=== PATIENT | female | born 1960 | race American Indian/Alaskan Native ===

== ENCOUNTER 2016-10-23 11:06 | Emergency (ER) | payer OTHER ==
--- NOTE | 2016-10-23 20:25 | Emergency Department Report ---
ED General Adult HPI - General Chief complaint: Extremity Injury, Lower Stated complaint: PAINFUL RT LEG SWELLING Time Seen by Provider: 10/23/16 20:08 Source: patient, RN notes reviewed Mode of arrival: Ambulatory Limitations: No Limitations - History of Present Illness Initial comments: This is a 56-year-old female. She is previously unknown to me. Her primary care doctor is Dr. Winters. She denies chronic medical conditions. The patient presents to the ER with complaint of right posterior leg pain. The pain has been present since Tuesday. It is constant. It is achy. It increases with palpation and range of motion. It decreases with rest. It does not radiate anywhere. There is no headache, neck pain, chest pain, abdominal pain or shortness of breath. Patient does take estrogen supplementation. On further review of systems, the patient does report that she's had intermittent crampy pain in the right lower extremity previously, but never paid enough attention to it. -: Gradual, days(s) Location: right, lower extremity Radiation: non-radiation Quality: aching Consistency: intermittent Improves with: rest Worsens with: movement Associated Symptoms: denies other symptoms - Related Data Previous Rx's Medication Instructions Recorded Last Taken Type Ibuprofen [Motrin] 600 mg PO Q8H PRN #30 tablet 10/23/16 Unknown Rx Allergies Allergy/AdvReac Type Severity Reaction Status Date / Time No Known Allergies Allergy Verified 10/23/16 11:17 ED Review of Systems ROS: Stated complaint: PAINFUL RT LEG SWELLING Other details as noted in HPI ED Past Medical Hx - Past Medical History Previous Medical History?: No - Surgical History Additional Surgical History: partial hysterectomy - Social History Smoking Status: Current Every Day Smoker Substance Use Type: Alcohol - Medications Home Medications: Home Medications Medication Instructions Recorded Confirmed Last Taken Type Ibuprofen [Motrin] 600 mg PO Q8H PRN #30 tablet 10/23/16 Unknown Rx ED Physical Exam - General Limitations: No Limitations General appearance: alert, in no apparent distress - Head Head exam: Present: atraumatic, normocephalic - Eye Eye exam: Present: normal appearance, EOMI. Absent: nystagmus - ENT ENT exam: Present: normal exam, normal orophraynx, mucous membranes moist, normal external ear exam - Neck Neck exam: Present: normal inspection, full ROM. Absent: tenderness, meningismus - Respiratory Respiratory exam: Present: normal lung sounds bilaterally. Absent: respiratory distress, wheezes, rales, rhonchi, stridor, chest wall tenderness, accessory muscle use, decreased breath sounds, prolonged expiratory - Cardiovascular Cardiovascular Exam: Present: regular rate, normal rhythm, normal heart sounds. Absent: systolic murmur, diastolic murmur, rubs, gallop - GI/Abdominal GI/Abdominal exam: Present: soft, normal bowel sounds. Absent: distended, tenderness, guarding, rebound, rigid, pulsatile mass - Extremities Exam Extremities exam: Present: normal inspection, full ROM, normal capillary refill , calf tenderness (there is right posterior calf tenderness. There is no palpable cord, there is negative Homans sign.), other (the compartments are soft. There is no pain with passive range of motion of the great toe on either of the lower extremities, 2+ pulses are noted in the bilateral upper and lower extremities). Absent: tenderness, pedal edema, joint swelling - Back Exam Back exam: Present: normal inspection, full ROM. Absent: tenderness, CVA tenderness (R), CVA tenderness (L), muscle spasm, paraspinal tenderness, vertebral tenderness - Neurological Exam Neurological exam: Present: alert, oriented X3, normal gait, other (Extraocular movements intact. Tongue midline. No facial droop. Facial sensation intact to light touch in the V1, V2, V3 distribution bilaterally. 5 and 5 strength in 4 extremities.. Sensation is intact to light touch in 4 extremities.). Absent : motor sensory deficit - Psychiatric Psychiatric exam: Present: normal affect, normal mood - Skin Skin exam: Present: warm, dry, intact, normal color. Absent: rash ED Course Vital Signs 10/23/16 10/23/16 10/23/16 11:17 20:38 20:39 Temperature 98.1 F 98.1 F Pulse Rate 75 72 Respiratory 18 18 Rate Blood Pressure 175/111 Blood Pressure 181/107 [Right] O2 Sat by Pulse 100 100 99 Oximetry ED Medical Decision Making - Lab Data Vital Signs 10/23/16 11:17 Temperature 98.1 F Pulse Rate 75 Respiratory 18 Rate Blood Pressure 175/111 O2 Sat by Pulse 100 Oximetry - Radiology Data Radiology results: report reviewed, image reviewed [facility] 1960 [id number] 10/23/16 13:28 - Radiology Dept. 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 Her lower extremity DVT study demonstrates no popliteal or distal DVT, however there is an incidental DVT noted CHRONIC VERY SMALL NON-OCCLUSIVE DVT RT DFV The patient is afebrile, with reassuring vital signs, without chest pain, shortness of breath, or DVT or pulmonary embolus risk factors. Given that the aforementioned lesion is very small, and is chronic in appearance, does not anatomically correlates to the location of the patient's pain, I don't think that this finding is immediately clinically relevant. The patient will be discharged with pain medication, and she should follow up with outpatient primary care or hematology for further evaluation and workup. She is counseled to follow up with her primary care for her hypertension. As for the [employer] clinical policy on a symptomatically hypertension: Critical Questions 1. Are ED blood pressure readings accurate and reliable for screening asymptomatic patients for hypertension? Level A recommendations. None specified. Level B recommendations. If blood pressure measurements are persistently elevated with a systolic blood pressure greater than 140 mm Hg or diastolic blood pressure greater than 90 mm Hg, the patient should be referred for follow- up of possible hypertension and blood pressure management. Level C recommendations. Patients with a single elevated blood pressure reading may require further screening for hypertension in the outpatient setting. 2. Do asymptomatic patients with elevated blood pressures benefit from rapid lowering of their blood pressure? Level A recommendations. None specified. Level B recommendations. (1) Initiating treatment for asymptomatic hypertension in the ED is not necessary when patients have follow-up; (2) Rapidly lowering blood pressure in asymptomatic patients in the ED is unnecessary and may be harmful in some patients; (3) When ED treatment for asymptomatic hypertension is initiated, blood pressure management should attempt to gradually lower blood pressure and should not be expected to be normalized during the initial ED visit. Level C recommendations. None specified. Critical care attestation.: If time is entered above; I have spent that time in minutes in the direct care of this critically ill patient, excluding procedure time. ED Disposition Clinical Impression: Elevated blood pressure reading, Right leg pain Disposition: TO HOME OR SELFCARE Is pt being admited?: No Does the pt Need Aspirin: No Condition: Stable Instructions: Deep Venous Thrombosis (ED), Hypertension (ED) Additional Instructions: Rest and avoid heavy lifting. Avoid strenuous physical activity. Take the pain medication as directed. Follow up with your primary care doctor or transit specialist within the next 7-10 days. Return to the ER right away with new pain, worsened pain, migration of pain, fevers, chills, chest pain, shortness of breath, confusion, intractable nausea or vomiting, inability to tolerate liquid feeds. Please note that blood pressure was elevated. This should be followed up by primary care doctor within a month. Long-term complications of hypertension and elevated blood pressure includes stroke, heart attack, disability, , paralysis, loss of quality of life. Prescriptions: Ibuprofen [Motrin] 600 mg PO Q8H PRN #30 tablet PRN Reason: Pain Referrals: PRIMARY CAREMD [Primary Care Provider] - 3-5 Days SUKI MCKEON MD [Staff Physician] - 3-5 Days SUZANNE GARCIA MD [Staff Physician] - 3-5 Days Forms: Work/School Release Form(ED)
[2016-10-23] MEDS ORDERED: MOTRIN PO ONE (20:28)
[2016-10-23] MEDS ORDERED: TYLENOL PO ONE (20:28)
[2016-10-23 20:38] VITALS: BP 181/107
--- NOTE | 2016-10-25 07:33 | Vascular Lab Report ---
Right Lower Extremity Venous Duplex Study: Reason for Exam: Pain and swelling of the right lower extremity. Comments on the Right: Echogenic density is noted on the mccain of the deep femoral vein consistent with chronic thrombus. It is nonocclusive.. The remaining veins visualized are freely compressible without evidence of internal echogenicity. Spontaneous and phasic flow is present proximally. Soft tissue changes in the right lower extremity are consistent with tissue edema Comments on the Left: A limited duplex study was done of the proximal veins of the left lower extremity. All veins visualized are freely compressible without evidence of internal echogenicity. Flow is spontaneous and phasic throughout. No evidence of acute or chronic thrombus is seen in any of the vessels visualized. Impression: Chronic nonocclusive deep venous thrombosis in the right deep femoral vein..
== END 2016-10-23 21:21 | disposition home or self-care (01) ==
LOC: ED 11:06
DX: R03.0 Elevated blood-pressure reading, without diagnosis of hypertension (principal); M79.604 Pain in right leg; F17.200 Nicotine dependence, unspecified, uncomplicated